=== PATIENT | male | born 1960 | race Caucasian/White ===

== ENCOUNTER → 2016-07-03 | Outpatient (CLI) | payer BC ==
[~2016-07-03] MED LIST: ASACOL400 MG PO; Asacol PO; FLAGYL PO; PREDNISONE PO; PREDNISONE10 MG PO
[2016-07-03 12:24] LABS: BASOPHIL# 0.1 X10e3 (0-0.3); BASOPHIL% 0.9 % (0-2.5); EOSINOPHIL# 0.1 X10e3 (0-0.7); EOSINOPHIL% 1.4 % (0.0-7.0); HEMATOCRIT 45.7 % (38.0-50.0); LYMPHOCYTE# 2.3 X10e3 (1.0-3.5); LYMPHOCYTE% 22.1 % (17.0-45.0); MEAN CELL VOLUME 90.8 FL (83-96); MEAN CORPUSCULAR HEMOGLOBIN 31.7 PG (28-34); MEAN CORPUSCULAR HGB CONC 34.9 g/dL (30-36); MEAN PLATELET VOLUME 7.4 FL (6.5-11.5); MONOCYTE% 9.3 % (3.0-12.0); NEUTROPHIL# 6.9 X10e3 (1.5-7.1); NEUTROPHIL% 66.3 % (40-75); PLATELET COUNT 395 X10e3 (140-420); RED BLOOD COUNT 5.03 X10e (3.90-5.60); RED CELL DISTRIBUTION WIDTH 14.4 % (11.0-15.5); WHITE BLOOD COUNT 10.3 X10e3 (4.0-10.5)
[2016-07-03 12:26] LABS: DIFF IND NO
[2016-07-03 12:40] LABS: ALBUMIN SERUM 3.9 g/dL (3.5-5.0); BILIRUBIN,TOTAL 1.3 mg/dL (0.2-2.0); BUN/CREATININE RATIO 14.16; CALCIUM SERUM 9.1 mg/dL (8.4-10.2); CREATININE SERUM 1.2 mg/dL (0.6-1.4); GLOM FILT RATE Estimated 68.2 mL/min (>60); POTASSIUM 3.2 mmol/L (3.5-5.1); PROTEIN TOTAL SERUM 7.2 g/dL (6.0-8.3)
[2016-07-03 12:42] LABS: MICRO INDICATED? NO; URINE APPEARANCE CLEAR; URINE BILIRUBIN NEG (NEG); URINE BLOOD NEG (NEG); URINE COLOR YELLOW; URINE GLUCOSE NEG (NORM); URINE KETONE NEG (NEG); URINE LEUKOCYTE ESTERASE NEG (NEG); URINE NITRATE NEG (NEG); URINE PROTEIN TRACE (NEG); URINE SOURCE CLEAN CATCH; URINE SPECIFIC GRAVITY 1.015 (1.003-1.035); URINE UROBILINOGEN 0.2 MG/DL (NORM)
[2016-07-06 07:18] LABS: HA AB IGM (HEPPAN) Nonreactive (()); HB CORE AB IGM (HEPPAN) Nonreactive (Nonreactive); HB S AG (HEPPAN) Nonreactive (Nonreactive); HEP C AB (HEPPAN) Nonreactive (Nonreactive); HEP C AB SIGNAL TO CUTOFF 0.02 ratio (<1.00)
== END | disposition home or self-care (01) ==
LOC: SLAB 11:47
PROVIDERS: Family Medicine
DX: D72.829 Elevated white blood cell count, unspecified (principal); R79.89 Other specified abnormal findings of blood chemistry; E87.6 Hypokalemia; R31.29 Other microscopic hematuria
CPT/HCPCS: 80053; 80074; 81003; 85025

== ENCOUNTER → 2016-07-05 | Outpatient (CLI) | payer BC ==
--- NOTE | ~2016-07-05 | US5 ---
[facility] A Service of [facility] RADIOLOGY TEXT RESULTS PATIENT: KRISTIAN CHO LOCATION: SG : 62 UNIT #: [id number] AGE: [address]: Ming Juan MD SEX: M ORDER DR: [id number] [address] [address] [id number] MR#: [id number] Acc #: [id number] NAME: KRISTIAN CHO : 1960 SEX: M STUDY DATE/TIME: 07/05/2016 8:21 UNIT: [facility] ROOM: STUDY DESCRIPTION: US Abdominal Complete Attending Physician: Ming Juan Jr., M.D. Referring Physician: Ming Juan Jr., M.D. Ordering Physician: Ming Juan Jr., M.D. Primary Care Physician: Ming Juan Jr., M.D. MEDICAL IMAGING REPORT This report is preliminary unless electronic signature is present. EXAM Abdominal ultrasound complete 07/05/2016 HISTORY Abnormally elevated liver enzymes on 06/29/2016. Left side abdominal pain for 1 month with weight loss for 3 months. FINDINGS The liver demonstrates an increase in echotexture with attenuation of the ultrasound beam characteristic of fatty infiltration. No cystic or solid mass lesions were seen in the liver. The intra and extrahepatic bile ducts are not dilated. The gallbladder is normal with no evidence of cholelithiasis, wall thickening or pericholecystic fluid. The common duct measures 2 mm. The pancreas and spleen are normal. The spleen measures 10.8 cm in greatest diameter. The visualized portions of the abdominal aorta and inferior vena cava are within normal limits. The kidneys are normal bilaterally. IMPRESSION Fatty infiltration of the liver. Otherwise negative abdominal ultrasound. Dictated by... Monty Novak M.D. THIS IS AN ELECTRONICALLY VERIFIED REPORT Monty Novak M.D. at 07/07/2016 8:16 AM KRT/to TD: 07/05/2016 15:31 JOB #: [id number] MEDICAL IMAGING REPORT [facility] A Service of [facility] RADIOLOGY TEXT RESULTS PATIENT: KRISTIAN CHO LOCATION: [facility] #: [id number] : [birth year] UNIT #: [id number] AGE: [address]: Ming Juan MD SEX: M ORDER DR: Page 1 of 1
== END | disposition home or self-care (01) ==
LOC: SGUS 07:53
DX: R79.89 Other specified abnormal findings of blood chemistry (principal); K76.0 Fatty (change of) liver, not elsewhere classified
CPT/HCPCS: 76700

== ENCOUNTER 2016-07-13 18:05 | Inpatient (IN) | payer BC ==
--- NOTE | ~2016-07-13 | CO ---
Unit #: [id number] #: [id number] Patient: KRISTIAN CHO [id number] [place] [address] [id number] MR#: [id number] NAME: KRISTIAN CHO ROOM: P259 Age: 55 Sex: M Admission Date: 07/13/2016 : 1960 Attending Physician: Bryant Vu M.D. Primary Care Physician: Ming Juan Jr., M.D. Consultation Date: 07/16/2016 CONSULTATION REPORT JAGUAR Reaves is a 55-year-old gentleman with severe psychosis. His p.o. intake of food and water has been inadequate over the past 48 hours. We will check a BMP. The patient is to be out of his room for all meals and snacks. Nursing staff is to monitor I's and O's. We will await results of BMP. Dictated by... Hazel Alford P.A.-C. for Isaac Lopez/nikita TD: 07/17/2016 12:17 JOB #: [id number] CONSULTATION REPORT Page 1 of 1 X Hazel Alford CONSULTATION REPORT
--- NOTE | ~2016-07-13 | A ---
[facility] Nutrition Therapy DATE: 07/23/16 Patient: KRISTIAN Gonsalez LAVERNEJosh Physician: LELIA Address: [address] [place] [address] Room/Bed: P259-1 [facility], Zip: [place] [id number] Admit Date: 07/13/16 Date of : [birth year] Height: 5 6 Weight: [phone] NUTRITIONAL ASSESSMENT: REASON: LENGTH OF STAY PATIENT ADMITTED FOR DEPRESSION, ANXIETY, AND PARANOIA PMH: ULCERATIVE COLITIS, RA, HTN Anthropometrics: HT: 5'6", WT: 157#, BMI: 25.3 Labs: 07/17/16- GLU: 125, ALB: 3.4 Meds: COGENTIN, HELOPERIDOL, CYMBALTA, ATIVAN, ZYPREXA, DESYREL, KLOR-CON Assessment: PATIENT IS A 55 Y/O MALE ADMITTED FOR DEPRESSION, ANXIETY, AND PARANOIA. PATIENT IS CURRENTLY EMPLOYED BUT UNABLE TO WORK D/T ANXIETY, LIVES WITH HIS AND SON, AND DENIES ANY SUBSTANCE ABUSE. UPON ADMIT PATIENT STATED A FAIR APPETITE WITH A 30# WIEGHT LOSS SINCE MARCH, HE HAD NOT BEEN SLEEPING, AND NURSING REPORTED POOR PO INTAKES AND AT TIMES REFUSING FOOD. PATIENT CONTINUES TO EXHIBIT PARANOIA, HOWEVER HE HAS HAD A DECREASE IN ANXIETY AND DEPRESSION. HE HAS HAD FAIR PO INTAKES SINCE COMING OUT OF HIS ROOM. AT TIMES PATIENT STILL REFUSES TO COME OUT OF HIS ROOM BUT IT HAS BEEN IMPROVING. HE CONTINUES NEEDING A LOT OF PROMPTING TO TAKE MEDICATIONS, EAT, AND TAKE CARE OF HIS ADLS. THERE ARE NO SKIN OR GI ISSUE NOTED ATT. PATIENT IS ON A REGULAR DIET. CURRENT PSYCH MEDS MAY CAUSE WEIGHT AND APPETITE FLUCTUATIONS. Dx: INADEQUATE NUTRIENT INTAKE R/T CURRENT CONDITION, PARANOIA AEB DECREASED APPETITE AND PO INTAKES, SELF-REPORTED WEIGHT LOSS (THIS SEEMS TO BE IMPROVING DAILY) Intervention: REGULAR DIET, MEDS PER MD, PSYCH Monitoring, Evaluation and Goals: 1. ADEQUATE PO INTAKES >50% OF MEALS 2. PREVENT, CORRECT MICRO/MACRO NUTRIENT DEFICIENCIES MONITOR: WEIGHTS, LABS, PO/FLUID INTAKES Recommendations: 1. CONTINUE REGULAR DIET TOLERATED. OFFER SNACKS THROUGHTOUT THE DAY 2. ENCOURAGE ADEQUATE PO AND FLUID INTAKES 3. OBTAIN NEW WEIGHT TO ENSURE PATIENT RECEIVING ADEQUATE ORAL INTAKES 4. CONSULT RD WITH ANY FURTHER NUTRITIONAL QUESTIONS OR CONCERNS [facility] Nutrition Therapy DATE: 07/23/16 Patient: KRISTIAN CHO Physician: LELIA Address: [address] [place] [address] Room/Bed: P259-1 [facility], Zip: [place] [address] Admit Date: 07/13/16 Date of : [birth year] Height: 5 6 Weight: [phone] TO F/U PER PROTOCOL AND PRN R/T PATIENT MILDLY COMPROMISED Respectfully, ABDELRAHMAN VINES RD, LD Food and Nutritional [facility] cc: client file
--- NOTE | ~2016-07-13 | PN ---
Unit #: [id number] #: [id number] Patient: KRISTIAN CHO [id number] [facility] [address] [place] [address] [id number] MR#: [id number] NAME: KRISTIAN CHO ROOM: P259 Age: 55 Sex: M Admission Date: 07/13/2016 : 1960 Attending Physician: Bryant Vu M.D. Admitting Physician: Bryant Vu M.D. Primary Care Physician: Ming Juan Jr., M.D. [facility] PROGRESS NOTES DATE 07/20/2016 DISCUSSION Mr. Reaves is a 55-year-old male, seen on 07/20/2016. The patient interviewed, chart reviewed, and obtained information from the nursing staff. The patient continues to be guarded, paranoid, flat affect, withdrawn, isolative, almost tearing, attending to internal stimuli, still needing a lot of prompts to take care of his activities of daily living, and eat and getting out of his room, seclusive, isolative. REVIEW OF SYSTEMS Complete review of systems unremarkable. MENTAL STATUS EXAMINATION General appearance: Patient dressed casually in hospital attire. Attention span and concentration, poor. Oriented to place and person. Mood and affect, labile. Speech, monotone. Thought process, concrete. The patient guarded, paranoid, passive SI, attending to internal stimuli. Recent and remote memory, poor. Insight and judgment, poor. DIAGNOSES 1. Major depressive disorder, recurrent. 2. Psychosis, NOS. ASSESSMENT/PLAN Recommending at this time to change Haldol to 5 mg twice daily, Cogentin 1 mg twice daily, continue to encourage the patient to eat, take his medications and if needed consider further adjustment of medication. Dictated by... Isaac Graham/pratik TD: 07/21/2016 10:37 JOB #: [id number] Unit #: [id number] #: [id number] Patient: KRISTIAN CHO PROGRESS NOTES Page 1 of 1 X Bryant Vu MD PROGRESS NOTE
--- NOTE | ~2016-07-13 | PN ---
Unit #: [id number] #: [id number] Patient: KRISTIAN CHO [id number] [facility] [address] [place] [address] [id number] I MR#: [id number] NAME: KRISTIAN CHO ROOM: P259 Age: 55 Sex: M Admission Date: 07/13/2016 : 1960 Attending Physician: Bryant Vu M.D. Admitting Physician: Bryant Vu M.D. Primary Care Physician: Ming Juan Jr., M.D. [facility] PROGRESS NOTES DATE OF SERVICE 07/22/2016 DISCUSSION Mr. Reaves is a 55-year-old male seen on 07/22/2016. Patient compliant with medication. Needing prompts to take care of ADLs, attend group, take medication, but still redirectable, no aggressive behavior. Patient reports sleeping good, decreasing anxiety/depression, but still guarded, paranoid. COMPLETE REVIEW OF SYSTEMS Unremarkable. MENTAL STATUS EXAMINATION GENERAL APPEARANCE: Patient dressed casually. ATTENTION SPAN AND CONCENTRATION: Fair. Oriented in time, place and person. MOOD AND AFFECT: Sad, dysphoric. SPEECH: Monotone. THOUGHT PROCESS: [place]. Patient having passive SI, guarded, paranoid, delusional. RECENT AND REMOTE MEMORY: Poor. INSIGHT AND JUDGMENT: Poor. DIAGNOSES Major depressive disorder, recurrent, with psychotic feature Psychosis, NOS ASSESSMENT/PLAN Advised to continue with current medication and therapeutic protocol. If needed, consider further adjustment on medication. Dictated by... Isaac Graham/bharati TD: 07/22/2016 23:26 JOB #: [id number] Unit #: [id number] #: [id number] Patient: KRISTIAN CHO PROGRESS NOTES Page 1 of 1 X Bryant Vu MD X PROGRESS NOTE
--- NOTE | ~2016-07-13 | PN ---
Unit #: [id number] #: [id number] Patient: KRISTIAN CHO [id number] [facility] [address] [place] [address] [id number] I MR#: [id number] NAME: KRISTIAN CHO ROOM: P259 Age: 55 Sex: M Admission Date: 07/13/2016 : 1960 Attending Physician: Bryant Vu M.D. Admitting Physician: Bryant Vu M.D. Primary Care Physician: Ming Juan Jr., M.D. [facility] PROGRESS NOTES DATE OF SERVICE: 07/19/2016 DISCUSSION Mr. Reaves is a 55-year-old male, seen on 07/19/2016. The patient interviewed, chart reviewed, and obtained information from nursing staff. The patient continues to be isolative in his room. Hygiene and grooming, poor. Withdrawn, isolative, flat affect, sad, dysphoric mood. Vital signs; temperature 97.4, pulse 121, and blood pressure 113/73. The patient needed lot of prompts to take his medication and eat. The patient is still refusing to come out of his room, withdrawn, flat, guarded, paranoid, isolative. The patient was having inappropriate urination. Started MIW process. Complete review of systems unremarkable. MENTAL STATUS EXAMINATION General appearance, the patient dressed casually. Attention span and concentration, fair. Oriented in place and person. Mood and affect, labile. Speech, slow. Thought process; circumstantial, guarded. The patient was having passive SI, guarded, paranoid, delusional, poor insight, poor judgment. Recent and remote memory, poor. Insight and judgment, poor. DIAGNOSES 1. Major depressive disorder, recurrent. 2. Psychosis, not otherwise specified. ASSESSMENT AND PLAN Advised to continue with current medication and therapeutic protocol. If needed, consider further adjustment of medication such as increasing the dosage of haloperidol to 5 mg b.i.d. as the patient is still having significant psychotic symptom. The patient is on 2 antipsychotics at this time, haloperidol and Zyprexa. Dictated by... Bryant Vu M.D. COLTON/nikita TD: 07/19/2016 22:30 JOB #: [id number] Unit #: [id number] #: [id number] Patient: KRISTIAN CHO PROGRESS NOTES Page 1 of 1 X Bryant Vu MD PROGRESS NOTE
--- NOTE | ~2016-07-13 | PN ---
Unit #: [id number] #: [id number] Patient: JEAN PAUL CHO [id number] [facility] [address] [place] [address] [id number] I MR#: [id number] NAME: JEAN PAUL CHO ROOM: P259 Age: 55 Sex: M Admission Date: 07/13/2016 : 1960 Attending Physician: Bryant Vu M.D. Admitting Physician: Bryant Vu M.D. Primary Care Physician: Ming Juan Jr., M.D. [facility] PROGRESS NOTES DATE 07/25/2016 DISCUSSION Jean Paul Cho is a 55-year-old male, seen on 07/25/2016. The patient was compliant and cooperative, seen on 07/25/16. The patient reported medication helping him, still having problems with the anxiety, depression, paranoia, able to go to some of the groups. Vital signs, stable, 97.8, 100, 16, and 112/84. The patient still having residual symptoms of paranoia, depression, passive SI, eating better, tolerating medication fairly well. REVIEW OF SYSTEMS Complete review of systems unremarkable. MENTAL STATUS EXAMINATION General appearance: Patient dressed casually. Attention span and concentration, fair. Oriented to place and person. Mood and affect, sad and dysphoric. Speech, monotone. Thought process, concrete. The patient denied any homicidal ideation but still having passive SI, guarded, paranoid. Recent and remote memory, poor. Insight and judgment, poor. DIAGNOSIS Major depressive disorder, recurrent. ASSESSMENT/PLAN Advised to continue with the current medication and therapeutic protocol and if needed consider adjustment of medication. Dictated by... Isaac Graham/pratik TD: 07/26/2016 09:04 JOB #: [id number] Unit #: [id number] #: [id number] Patient: JEAN PAUL CHO PROGRESS NOTES Page 1 of 1 X Bryant Vu MD X PROGRESS NOTE
--- NOTE | ~2016-07-13 | PN ---
Unit #: [id number] #: [id number] Patient: KRISTIAN CHO [id number] [facility] [address] [place] [address] [id number] I MR#: [id number] NAME: KRISTIAN CHO ROOM: P259 Age: 55 Sex: M Admission Date: 07/13/2016 : 1960 Attending Physician: Bryant Vu M.D. Admitting Physician: Bryant Vu M.D. Primary Care Physician: Ming Juan Jr., M.D. [facility] PROGRESS NOTES DATE OF SERVICE: 07/16/2016 DISCUSSION Mr. Reaves is a 55-year-old male, seen on 07/16/2016. The patient continues to be very guarded and paranoid, refusing to eat. The patient reported severe anxiety and paranoia. The patient was refusing to take medication, isolative, guarded, flat affect. I talked to the patient's in detail. Plan is to go for MIW at this time and also monitor the patient's intake and output. Also, ordered medical consultation. The patient was not cooperative, very guarded, paranoid. Subsequently, the patient was given Haldol 5, Cogentin 1, and Ativan 1 mg. Complete review of systems unremarkable. MENTAL STATUS EXAMINATION General appearance, the patient dressed casually. Attention span and concentration, fair. Oriented in place and person. Mood and affect; sad, dysphoric, flat. Speech, slow in volume and rate. Thought process, circumstantial. The patient was having suicidal ideation. Denied any homicidal ideation. Guarded and paranoid. Recent and remote memory, poor. Insight and judgment, poor. DIAGNOSIS Major depressive disorder, recurrent, severe with psychotic feature. ASSESSMENT AND PLAN Advised to continue with current medication and therapeutic protocol. If needed, consider further adjustment of medication, and we will pursue MIW at this time. Dictated by... Isaac Graahm/junitol TD: 07/16/2016 16:36 JOB #: [id number] Unit #: [id number] #: [id number] Patient: KRISTIAN CHO PROGRESS NOTES Page 1 of 1 X Bryant Vu MD PROGRESS NOTE
--- NOTE | ~2016-07-13 | PN ---
Unit #: [id number] #: [id number] Patient: KRISTIAN CHO [id number] [facility] [address] [place] [address] [id number] MR#: [id number] NAME: KRISTIAN CHO. ROOM: P259 Age: 55 Sex: M Admission Date: 07/13/2016 : 1960 Attending Physician: Bryant Vu M.D. Admitting Physician: Bryant Vu M.D. Primary Care Physician: Ming Juan Jr., M.D. [facility] PROGRESS NOTES DATE OF SERVICE 07/26/2016 DISCUSSION Mr. Reaves is a 55-year-old male seen on 07/26/2016. Patient interviewed, chart reviewed, I obtained information from nursing staff. Patient is tolerating medication fairly well, able to attend group. Decrease in anxiety, paranoia, depression. Patient was up early this morning but able to go back to sleep. No side effect from medication but still having above-mentioned symptoms. COMPLETE REVIEW OF SYSTEMS Unremarkable. MENTAL STATUS EXAMINATION GENERAL APPEARANCE: Patient dressed casually. ATTENTION SPAN AND CONCENTRATION: Fair. Oriented in time, place and person. MOOD AND AFFECT: Sad, dysphoric, flat. SPEECH: Monotone. THOUGHT PROCESS: [place]. Patient having passive SI, guarded, withdrawn, paranoid. RECENT AND REMOTE MEMORY: Poor. INSIGHT AND JUDGMENT: Poor. DIAGNOSIS Major depressive disorder with psychotic features ASSESSMENT/PLAN Advised to continue with current medication and therapeutic protocol. Will plan to have a family session this week and discuss about discharge plan. Continue with the inpatient program at this time. Dictated by... Bryant Vu M.D. COLTON/bharati TD: 07/27/2016 00:01 Unit #: [id number] #: [id number] Patient: KRISTIAN CHO JOB #: [id number] [facility] PROGRESS NOTES Page 1 of 1 X Bryant Vu MD PROGRESS NOTE
--- NOTE | ~2016-07-13 | PN ---
Unit #: [id number] #: [id number] Patient: KRISTIAN CHO [id number] [facility] [address] [place] [address] [id number] MR#: [id number] NAME: KRISTIAN CHO ROOM: P259 Age: 55 Sex: M Admission Date: 07/13/2016 : 1960 Attending Physician: Bryant Vu M.D. Admitting Physician: Bryant Vu M.D. Primary Care Physician: Ming Juan Jr., M.D. [facility] PROGRESS NOTES DATE OF SERVICE 07/15/2016 DISCUSSION Mr. Reaves is a 55-year-old male seen on 07/15/2016. The patient interviewed, chart reviewed. Obtained information from nursing staff. The patient was withdrawn, isolative, guarded, seclusive, staying in his room. The patient compliant with medication but still very sad, depressed, anxious, paranoid. The patient refused to eat his breakfast this morning. Decreased appetite, feeling of hopelessness, worthlessness. Complete Review of Systems: Unremarkable. MENTAL STATUS EXAMINATION General Appearance: The patient dressed casually. Attention span, concentration: Fair. Oriented in place and person. Mood and affect: Sad, depressed. Speech: Monotone. Thought process: [place]. The patient reported having passive SI, withdrawn, isolative, delusional, paranoid. Recent and remote memory: Poor. Insight and judgment: Poor. DIAGNOSES 1. Major depressive disorder with psychotic features. 2. Rule out bipolar mood disorder. ASSESSMENT/PLAN Advised to continue with current medication with a plan to change Vistaril to 50 mg 3 times a day and added Ativan 0.5 mg 3 times a day and one dose now. We will continue to encourage the patient to attend group and eat. Continue with the inpatient programming. Dictated by... Bryant Vu M.D. COLTON/agnieszka TD: 07/16/2016 13:04 JOB #: [id number] Unit #: [id number] #: [id number] Patient: KRISTIAN CHO PROGRESS NOTES Page 1 of 1 X Bryant Vu MD NOTE
--- NOTE | ~2016-07-13 | PN ---
Unit #: [id number] #: [id number] Patient: JEAN PAUL CHO [id number] [facility] [address] [place] [address] [id number] MR#: [id number] NAME: JEAN PAUL CHO ROOM: P259 Age: 55 Sex: M Admission Date: 07/13/2016 : 1960 Attending Physician: Bryant Vu M.D. Admitting Physician: Bryant Vu M.D. Primary Care Physician: Ming uJan Jr., M.D. [facility] PROGRESS NOTES DATE 07/17/2016 DISCUSSION Jean Paul Cho is a 55-year-old male seen on 07/17/2016. Patient interviewed, chart reviewed, obtained information from the nursing staff. The patient continues to be guarded, paranoid, flat affect, sad, dysphoric. Patient reviewed p.r.n. medication Haldol, Cogentin, Ativan. Able to eat better last night and decrease in paranoia. Patient was compliant with medication last night. Patient continues to be isolative, guarded, flat affect. Patient still refusing to leave room. Paranoid. Complete review of systems unremarkable. MENTAL STATUS EXAMINATION General appearance: Patient is dressed casually. Attention span and concentration poor. Oriented in place and person. Mood and affect sad and dysphoric. Flat, withdrawn, isolative. Speech monotone. Thought process concrete. Patient guarded, paranoid, delusional. Depressed. Suicidal ideation. Recent and remote memory poor. Insight and judgement poor. DIAGNOSIS Major depressive disorder, recurrent. ASSESSMENT AND PLAN Advise to continue with current medication, and continue to encourage patient to take medication and eat. If needed, consider further adjustment of medication. Dictated by... Isaac Graham/perla TD: 07/18/2016 10:54 JOB #: [id number] Unit #: [id number] #: [id number] Patient: JEAN PAUL CHO PROGRESS NOTES Page 1 of 1 X Bryant Vu MD PROGRESS NOTE
--- NOTE | ~2016-07-13 | PA ---
Unit #: [id number] #: [id number] Patient: JEAN PAUL CHO [id number] [facility] [address] [place] [address] [id number] I MR#: [id number] NAME: JEAN PAUL CHO ROOM: P259 Age: 55 Sex: M Admission Date: 07/13/2016 : 1960 Date of Assessment: 07/14/2016 Attending Physician: Bryant Vu M.D. Admitting Physician: Bryant Vu M.D. Primary Care Physician: Ming Juan Jr., M.D. PSYCHIATRIC ASSESSMENT INFORMANTS The patient's reliability, fair; chart reliability, good. CHIEF COMPLAINT Depression. HISTORY OF PRESENT ILLNESS Mr. Jean Paul Cho is a 55-year-old white male, seen on 2-Cassi with symptoms of depression, anxiety, paranoia. Mr. Reaves was enrolled in [facility] and discharged as the patient was not doing well in the program. The patient has not shown much improvement and steadily going downhill, increase in anxiety, depression, and paranoia. The patient reported anxiety, severe, trouble sleeping and eating, withdrawn, isolative, delusional, people are following him, driving by his home at night. The patient also lost 30 pounds since March. The patient reported that it is getting harder for him to get out of the bed, failed lower level of care, severe anxiety, depression, passive SI. The patient was also followed in the outpatient clinic with Dr. Eng, but no improvement, therefore needed inpatient admission at this time for psychiatric stabilization. The patient denied any current suicidal or homicidal ideation or any plans, but feeling of hopelessness, passive SI. PAST PSYCHIATRIC HISTORY Remarkable for history of outpatient services through [facility] in [facility] level of care. No history of any suicide attempt. FAMILY HISTORY AND SOCIAL HISTORY The patient has good support from his and son. No history of any abuse. MEDICAL HISTORY Remarkable for history of hypertension. Musculoskeletal; muscle strength and tone, no atrophy or abnormal movement. Gait normal. MEDICATION HISTORY The patient is on amlodipine, hydrochlorothiazide, metoprolol, potassium, Humira, hydroxyzine, trazodone, Prozac, and Zyprexa. ALLERGIES No known drug allergies. SUBSTANCE ABUSE HISTORY Unit #: [id number] #: [id number] Patient: JEAN PAUL CHO None. REVIEW OF SYSTEMS HEENT: Eyes, clear. Ears, nose, mouth, and throat; clear. CARDIOVASCULAR: Unremarkable. RESPIRATORY: Unremarkable. GI: Unremarkable. : Unremarkable. SKIN: Unremarkable. LYMPH NODE: Unremarkable. NEUROLOGIC: Unremarkable. ENDOCRINE: Unremarkable. HEMATOLOGIC: Unremarkable. ALLERGIC/IMMUNOLOGIC: Unremarkable. MUSCULOSKELETAL: Muscle strength and tone, no atrophy or abnormal movement. Gait normal. MENTAL STATUS EXAMINATION CONSTITUTIONAL: Measurement of vital signs; temperature is 98.3, pulse 73, respirations 17, oxygen saturation 98%, blood pressure 156/90, height 5 feet 6 inches, weight 157 pounds. GENERAL APPEARANCE: The patient is dressed casually. No facial deformity noted. MUSCULOSKELETAL: Please see above. PSYCHIATRIC EXAMINATION Description of speech; slow. Description of thought process, circumstantial. Description of association, intact. Description of abnormal psychotic thinking; the patient was guarded, paranoid, mood lability, depression, feeling of hopelessness and worthlessness. No suicidal or homicidal ideation, but passive SI. Description of the patient's judgment, concerning. Everyday activity, poor. Social situation, poor and concerning. Psychiatric condition, poor. Complete mental status examination; oriented in time, place, and person. Recent and remote memory, fair. Attention span and concentration, fair. Language, able to name object and repeat phrases. Fund of knowledge, aware of current event and passive vocabulary intact. Mood and affect, sad and dysphoric. Insight and judgment, fair to poor. ASSETS AND LIABILITIES Assets; the patient is articulate and able to take care of his ADL. Liability; history of severe depression with psychosis. ADMITTING DIAGNOSES Psychiatric: 1. Major depressive disorder, recurrent, severe, F33.2. 2. Anxiety disorder, not otherwise specified, F41.9. 3. Psychosis, not otherwise specified, F29.0. Secondary diagnosis: Deferred. Medical diagnosis: Hypertension. Stressors: Psychosocial stressor. PSYCHIATRIC PLAN, TREATMENT GOAL, AND DISCHARGE PLAN 1. Advised to admit the patient on the inpatient unit. Provide safe, supportive, and structured environment. Unit #: [id number] #: [id number] Patient: JEAN PAUL CHO 2. Ordered labs; CBC, CMP, UA, UDS, T4, TSH. 3. Advised to resume home medication with a plan to continue with the following medication only; Zyprexa 10 mg at bedtime, Desyrel 100 mg at bedtime, Vistaril 25 mg times a day, Klor-Con. Prozac was discontinued with a plan to consider alternative medication. Continue with the inpatient programing. If needed, consider further adjustment of medication. Dictated by... Isaac Graham/nikita TD: 07/15/2016 05:09 JOB #: [id number] PSYCHIATRIC ASSESSMENT Page 1 of 1 X Bryant Vu MD X PSYCHIATRIC ASSESSMENT
--- NOTE | ~2016-07-13 | PN ---
Unit #: [id number] #: [id number] Patient: KRISTIAN CHO [id number] [facility] [address] [place] [address] [id number] I MR#: [id number] NAME: KRISTIAN CHO. ROOM: P259 Age: 55 Sex: M Admission Date: 07/13/2016 : 1960 Attending Physician: Bryant Vu M.D. Admitting Physician: Bryant Vu M.D. Primary Care Physician: Ming Juan Jr., M.D. [facility] PROGRESS NOTES DATE OF SERVICE 07/23/2016 DISCUSSION Mr. Reaves is a 55-year-old male seen on 07/23/2016. The patient interviewed, chart reviewed. Obtained information from nursing staff. The patient slowly making progress. Still isolative, guarded, flat affect. Paranoia, anxiety, delusional, but able to contract for safety. The patient was able to attend some group. Still isolative. Taking medication, but still needing prompts. No side effects from medication. Complete Review of Systems: Unremarkable. MENTAL STATUS EXAMINATION General Appearance: The patient dressed casually. Attention span, concentration: Poor. Oriented in place and person. Mood and affect: Sad, dysphoric, flat. Speech: Monotone. Thought process: [place]. The patient still having passive SI. Denied any plans. Guarded, paranoid. Recent and remote memory: Poor. Insight and judgment: Poor. DIAGNOSES 1. Major depressive disorder, recurrent, severe, with psychotic feature. 2. Psychosis not otherwise specified. ASSESSMENT/PLAN Advised to continue with current medication. If needed, consider further adjustment of medication. The patient is currently on combination of Cogentin, haloperidol, Cymbalta, Ativan, and Zyprexa. Desyrel for sleep. Dictated by... Bryant Vu M.D. SZC/bzg TD: 07/24/2016 07:51 JOB #: [id number] Unit #: [id number] #: [id number] Patient: KRISTIAN CHO PROGRESS NOTES Page 1 of 1 X Bryant Vu MD PROGRESS NOTE
--- NOTE | ~2016-07-13 | PN ---
Unit #: [id number] #: [id number] Patient: JEAN PAUL CHO [id number] [facility] [address] [place] [address] [id number] I MR#: [id number] NAME: JEAN PAUL CHO. ROOM: P259 Age: 55 Sex: M Admission Date: 07/13/2016 : 1960 Attending Physician: Bryant Vu M.D. Admitting Physician: Bryant Vu M.D. Primary Care Physician: Ming Juan Jr., M.D. [facility] PROGRESS NOTES DATE OF SERVICE 07/14/2016 DISCUSSION Mr. Jean Paul Cho is a 55-year-old male seen on 07/14/2016. Patient interviewed, chart reviewed, obtained information from nursing staff. Patient continues to be guarded, paranoid, withdrawn, isolative, sad, dysphoric, anxious, delusional, passive SI. COMPLETE REVIEW OF SYSTEMS Unremarkable. MENTAL STATUS EXAMINATION GENERAL APPEARANCE: Patient dressed casually. ATTENTION SPAN AND CONCENTRATION: Fair. Oriented in place and person. MOOD AND AFFECT: Labile. SPEECH: Monotone. THOUGHT PROCESS: [place]. Patient having passive SI, withdrawn, isolative, guarded. RECENT AND REMOTE MEMORY: Poor. INSIGHT AND JUDGMENT: Poor. DIAGNOSIS Major depressive disorder, recurrent, with psychosis, NOS Anxiety disorder, NOS ASSESSMENT/PLAN Continue with the current medication (combination of Zyprexa, Desyrel, Vistaril, Cymbalta), discontinue Prozac. If needed, consider further adjustment in medication. Dictated by... Isaac Graham/bharati TD: 07/14/2016 22:37 JOB #: [id number] Unit #: [id number] #: [id number] Patient: JEAN PAUL [place] PROGRESS NOTES Page 1 of 1 X Bryant Vu MD PROGRESS NOTE
--- NOTE | ~2016-07-13 | PN ---
Unit #: [id number] #: [id number] Patient: KRISTIAN CHO [id number] [facility] [address] [place] [address] [id number] MR#: [id number] NAME: KRISTIAN CHO ROOM: P259 Age: 55 Sex: M Admission Date: 07/13/2016 : 1960 Attending Physician: Bryant Vu M.D. Admitting Physician: Bryant Vu M.D. Primary Care Physician: Ming Juan Jr., M.D. [facility] PROGRESS NOTES DATE 07/27/2016 DISCUSSION Mr. Reaves is a 55-year-old male seen on 07/27/2016. The patient interviewed, chart reviewed. Obtained information from nursing staff. The patient was compliant and cooperative. Mood sad, dysphoric isolative guarded but overall making progress tolerating medication fairly well. The patient was able to go to other groups. Compliant with medication showing improvement in his mood and behavior. Complete review of systems unremarkable. MENTAL STATUS EXAMINATION General appearance, the patient dressed casually. Attention span and concentration fair. Oriented to time, place and person. Mood and affect sad, dysphoric, flat. Speech monotone. Thought process concrete. The patient denied any suicidal or homicidal ideation denied any psychotic symptoms. Denied any auditory or visual hallucination but guarded, paranoid. Recent and remote memory poor. Insight and judgement poor. DIAGNOSES Major depressive disorder recurrent severe with psychotic features. ASSESSMENT/PLAN Advise to continue with current medication with a plan to consider discharge this week. The patient overall making progress but still having residual symptoms of psychosis and depression. Dictated by... Isaac Graham/jess TD: 07/28/2016 03:17 JOB #: [id number] Unit #: [id number] #: [id number] Patient: KRISTIAN CHO PROGRESS NOTES Page 1 of 1 X Bryant Vu MD PROGRESS NOTE
--- NOTE | ~2016-07-13 | HP ---
Unit #: [id number] #: [id number] Patient: JEAN PAUL CHO [id number] [place] [address] [id number] MR#: [id number] NAME: JEAN PAUL CHO. ROOM: P259 Age: 55 Sex: M Admission Date: 07/13/2016 : 1960 Attending Physician: Bryant Vu M.D. Admitting Physician: Bryant Vu M.D. Primary Care Physician: Ming Juan Jr., M.D. HISTORY AND PHYSICAL HISTORY OF PRESENT ILLNESS Jean Paul is a 55 year old admitted to [address] [place] [address] with increased anxiety and depression. PAST MEDICAL HISTORY 1. Ulcerative colitis. 2. Rheumatoid arthritis. 3. High blood pressure. PAST SURGICAL HISTORY Nothing reported. ALLERGIES Levaquin. SOCIAL HISTORY He denies cigarettes, alcohol and illicit drug use. FAMILY HISTORY Medically noncontributory. REVIEW OF SYSTEMS CONSTITUTIONAL: No fever or chills. HEENT: Denies any sore throat, ear pain or runny nose. CARDIOVASCULAR: Denies chest pain, irregular heart rhythm or palpitations. CHEST: Denies shortness of breath or cough. No hemoptysis. GASTROINTESTINAL: Denies nausea, vomiting, diarrhea or chronic constipation. ENDOCRINE: Denies history of increased thirst or urination. No recent significant weight loss or gain. GENITOURINARY: Denies dysuria, frequency, or hematuria. SKIN: Denies any rashes. HEMATOLOGIC: Denies history of increased bleeding or bruising. MUSCULOSKELETAL: Denies any hot, swollen joints. No generalized muscle pain. NEUROLOGIC: Denies problems with vision or speech. No frequent, severe headaches. No numbness, tingling or weakness in any extremities. Denies loss of bladder or bowel control. CURRENT MEDICATIONS 1. Zyprexa 10 mg q.h.s. 2. Desyrel 100 mg q.h.s. 3. Vistaril 25 mg t.i.d. Unit #: [id number] #: [id number] Patient: JEAN PAUL CHO 4. KCL 10 mEq daily. 5. Prozac 20 mg daily. 6. Milk of Magnesia p.r.n. 7. Maalox p.r.n. 8. Tylenol p.r.n. PHYSICAL EXAMINATION GENERAL: Alert, well-nourished, in no apparent distress. VITAL SIGNS: Blood pressure 156/90, heart rate 80, respirations 16, temperature 98.6. WEIGHT: 157. HEIGHT: 5 feet 6 inches. SKIN: Warm and dry without rash or lesion. HEENT: Normocephalic. TMs not viewed. Oral and nasal passages clear. Conjunctivae clear. PERRLA. EOMs intact. NECK: Supple without lymphadenopathy or thyromegaly. HEART: Regular rate and rhythm without murmur. LUNGS: Clear. ABDOMEN: Soft, nontender. : Not done. EXTREMITIES: No evidence of cyanosis, clubbing or edema. Moves all without focal deficit. NEUROLOGICAL: Grossly within normal limits. Cranial Nerves: II: Visual zamorano are intact. III, IV AND : Extraocular movements are intact. Pupils are equal, round and reactive to light. V: Facial sensation is grossly normal. VII: Facial movements and expression are normal. VIII: Auditory acuity grossly intact. IX, X: Uvula is midline. Phonation is normal. XI: Patient shrugs shoulders and turns head normally. XII: Tongue protrudes in the midline. Sensory and Motor Function: Sensory and motor sensation is grossly normal. Motor: moves all extremities well. Coordination: Gait is normal. Deep Tendon Reflexes: Intact. IMPRESSION Psychiatric admission. RECOMMENDATIONS PSYCHIATRIC: Per psychiatrist. MEDICAL: See no contraindications to participate in facility's activities. MEDICAL PROGNOSIS Good. MEDICAL CONDITION Stable. Dictated by... Hazel Alford P.A.-C. for Isaac Lopez/cesar TD: 07/14/2016 18:28 JOB #: [id number] Unit #: [id number] #: [id number] Patient: JEAN PAUL CHO HISTORY AND PHYSICAL Page 1 of 1 X Hazel Alford HISTORY AND PHYSICAL
--- NOTE | ~2016-07-13 | PN ---
Unit #: [id number] #: [id number] Patient: JEAN PAUL CHO [id number] [facility] [address] [place] [address] [id number] I MR#: [id number] NAME: JEAN PAUL CHO ROOM: P259 Age: 55 Sex: M Admission Date: 07/13/2016 : 1960 Attending Physician: Bryant Vu M.D. Admitting Physician: Bryant Vu M.D. Primary Care Physician: Ming Juan Jr., M.D. [facility] PROGRESS NOTES DATE 07/18/2016 DISCUSSION Mr. Jean Paul Cho is a 55-year-old male, seen on 07/18/2016. The patient continues to be isolative, flat, withdrawn, refusing to eat this morning but compliant with medication last night and this morning. The patient was able to sleep somewhat better but still flat affect, guarded, paranoid, depressed. Vital signs stable, 98.4, 107, 16, and 170/88. The patient's ammonia level 27, CMP yesterday was remarkable for glucose of 125, potassium 4.4 REVIEW OF SYSTEMS Complete review of systems unremarkable. MENTAL STATUS EXAMINATION General appearance: Patient dressed casually. Attention span and concentration, poor. Oriented to place and person. Mood and affect, sad and depressed. Speech, slow, long pauses. Thought process, circumstantial. Thought content, passive SI. Guarded and paranoid, delusional. Recent and remote memory, poor. Insight and judgment, poor. DIAGNOSIS Major depressive disorder with psychotic features. ASSESSMENT/PLAN Advised to continue with the current medication combination of Ativan 0.5 mg three times a day, Vistaril 50 mg three times a day, Cymbalta 30 mg at bedtime, Zyprexa 10 mg at bedtime, Desyrel 100 mg at bedtime, if needed consider haloperidol. Dictated by... Bryant Vu M.D. COLTON/pratik Unit #: [id number] #: [id number] Patient: JEAN PAUL CHO TD: 07/19/2016 07:55 JOB #: [id number] [facility] PROGRESS NOTES Page 1 of 1 X Bryant Vu MD PROGRESS NOTE
--- NOTE | ~2016-07-13 | PN ---
Unit #: [id number] #: [id number] Patient: KRISTIAN CHO [id number] [facility] [address] [place] [address] [id number] I MR#: [id number] NAME: KRISTIAN CHO ROOM: P259 Age: 55 Sex: M Admission Date: 07/13/2016 : 1960 Attending Physician: Bryant Vu M.D. Admitting Physician: Bryant Vu M.D. Primary Care Physician: Ming Juan Jr., M.D. [facility] PROGRESS NOTES DATE OF SERVICE: 07/24/2016 . DISCUSSION Mr. Reaves is a 55-year-old male, seen on 07/24/2016. The patient continues to be isolative, flat affect, withdrawn, compliant with medication, needing prompts to attend group and take medication, still sad, depressed, flat affect, passive SI. Complete review of systems unremarkable. MENTAL STATUS EXAMINATION General appearance, the patient dressed casually. Attention span and concentration, fair. Oriented in place and person. Mood and affect, sad and depressed. Speech, monotone. Thought process, concrete. The patient denied any thoughts of harming self or others, but passive SI, guarded, withdrawn, flat. Recent and remote memory, poor. Insight and judgment, poor. DIAGNOSES Major depressive disorder with psychotic features. ASSESSMENT AND PLAN Advised to continue with current medication and therapeutic protocol. If needed, consider further adjustment of medication. Dictated by... Isaac Graham/nikita TD: 07/24/2016 21:21 JOB #: [id number] Unit #: [id number] #: [id number] Patient: KRISTIAN CHO PROGRESS NOTES Page 1 of 1 X Bryant Vu MD X PROGRESS NOTE
--- NOTE | ~2016-07-13 | DS ---
Unit #: [id number] #: [id number] Patient: KRISTIAN CHO [id number] [place] [address] [id number] I MR#: [id number] NAME: KRISTIAN CHO. ROOM: P259 Age: 55 Sex: M Admission Date: 07/13/2016 : 1960 Discharge Date: 07/28/2016 Attending Physician: Bryant Vu M.D. Primary Care Physician: Ming Juan Jr., M.D. DISCHARGE SUMMARY REASON FOR ADMISSION Depression, psychosis. DIAGNOSTIC STUDIES LABORATORY RESULTS: Unremarkable. HOSPITAL COURSE The patient was admitted to inpatient unit on 07/13/2016 and discharged on 07/28/2016. The patient was treated with group therapy, individual therapy, medication management, family therapy. The patient responded well with the above modalities of treatment and showed improvement, decrease in depressive symptom, psychotic symptom, compliant with medication. Subsequently, the patient was discharged with a plan to follow up in outpatient program. DISCHARGE MEDICATIONS Desyrel 100 mg at bedtime for sleep, Zyprexa 10 mg at bedtime for psychosis, Ativan 0.5 mg t.i.d. for anxiety, Cymbalta 5 mg b.i.d. for psychosis, Cogentin 1 mg b.i.d. for EPS symptom. The patient needed two antipsychotics as the patient did not do well with one. The patient was treated in the past with Zyprexa, Haldol, and Risperdal. Plan to taper off Haldol over the next 6 months. The patient is not a candidate for clozapine at this time. DISCHARGE DIAGNOSES Psychiatric: Major depressive disorder, recurrent, severe, with psychotic feature, F33.3; anxiety disorder, not otherwise specified, F41.9; psychosis, not otherwise specified, F29.0. Secondary diagnosis: Deferred. Medical diagnosis: Hypertension. Stressors: Psychosocial stressors. DISCHARGE INSTRUCTIONS The patient is to follow up in outpatient clinic as per psychiatric social worker. CONDITION ON DISCHARGE The patient was pleasant and cooperative. Denied any psychotic symptom or any suicidal ideation. PROGNOSIS Unit #: [id number] #: [id number] Patient: KRISTIAN CHO Guarded. DIET AND ACTIVITY As tolerated. Dictated by... Isaac Graham/nikita TD: 07/28/2016 15:55 JOB #: [id number] DISCHARGE SUMMARY Page 1 of 1 X Bryant Vu MD DISCHARGE SUMMARY
--- NOTE | ~2016-07-13 | PN ---
Unit #: [id number] #: [id number] Patient: KRISTIAN CHO [id number] [facility] [address] [place] [address] [id number] I MR#: [id number] NAME: KRISTIAN CHO ROOM: P259 Age: 55 Sex: M Admission Date: 07/13/2016 : 1960 Attending Physician: Bryant Vu M.D. Admitting Physician: Bryant Vu M.D. Primary Care Physician: Ming Juan Jr., M.D. [facility] PROGRESS NOTES DATE OF SERVICE 07/21/2016 DISCUSSION Mr. Reaves is a 55-year-old male seen on 07/21/2016. The patient interviewed, chart reviewed. Obtained information from nursing staff. The patient's mood sad, dysphoric, flat affect, guarded, isolative. The patient needing prompts to take care of his medication and take care of himself. Also, able to take his medication. The patient paranoid, guarded, fearful, anxious. The patient ate one-third of the breakfast and 236 mL of milk, half of lunch and 236 mL of milk. The patient scheduled for court today. Complete Review of Systems: Unremarkable. MENTAL STATUS EXAMINATION General Appearance: The patient's hygiene and grooming poor. Attention span, concentration: Poor. Oriented in place and person. Mood and affect: Sad, dysphoric. Speech: Monotone. Thought process: [place]. Association: The patient reported having passive SI. Denied any active suicidal ideation. Guarded, paranoid, withdrawn, isolative, delusional. Recent and remote memory: Poor. Insight and judgment: Poor. DIAGNOSES Major depressive disorder, recurrent, severe with psychotic features. ASSESSMENT/PLAN Advised to continue with current medication combination. If needed, consider further adjustment of medication. The patient is currently on Cogentin 1 mg twice daily, Haldol 5 mg twice daily which was increased yesterday. No side effects from medication. Also, taking Cymbalta, Ativan, and Zyprexa. Desyrel for sleep. We will continue to monitor. If needed, consider further adjustment of medication. Dictated by... Bryant Vu M.D. COLTON/agnieszka TD: 07/22/2016 09:35 Unit #: [id number] #: [id number] Patient: TAMMIEKRISTIAN JOB #: [id number] [facility] PROGRESS NOTES Page 1 of 1 X Bryant Vu MD PROGRESS NOTE
[2016-07-14 12:28] LABS: BASOPHIL# 0.1 X10e3 (0-0.3); BASOPHIL% 0.7 % (0-2.5); EOSINOPHIL# 0.1 X10e3 (0-0.7); EOSINOPHIL% 1.2 % (0.0-7.0); HEMATOCRIT 41.5 % (38.0-50.0); HEMOGLOBIN 14.3 gm/dL (13.0-16.0); LYMPHOCYTE# 1.5 X10e3 (1.0-3.5); LYMPHOCYTE% 19.2 % (17.0-45.0); MEAN CELL VOLUME 91.3 FL (83-96); MEAN CORPUSCULAR HEMOGLOBIN 31.4 PG (28-34); MEAN CORPUSCULAR HGB CONC 34.4 g/dL (30-36); MEAN PLATELET VOLUME 7.6 FL (6.5-11.5); MONOCYTE# 0.5 X10e3 (0-1.0); MONOCYTE% 6.8 % (3.0-12.0); NEUTROPHIL# 5.5 X10e3 (1.5-7.1); NEUTROPHIL% 72.1 % (40-75); PLATELET COUNT 298 X10e3 (140-420); RED BLOOD COUNT 4.55 X10e (3.90-5.60); RED CELL DISTRIBUTION WIDTH 14.6 % (11.0-15.5); WHITE BLOOD COUNT 7.6 X10e3 (4.0-10.5)
[2016-07-14 12:43] LABS: ALBUMIN SERUM 3.4 g/dL (3.5-5.0); BILIRUBIN,TOTAL 0.9 mg/dL (0.2-2.0); BUN/CREATININE RATIO 12.22; CALCIUM SERUM 9.2 mg/dL (8.4-10.2); CREATININE SERUM 0.9 mg/dL (0.6-1.4); GLOM FILT RATE Estimated 96.5 mL/min (>60); POTASSIUM 3.9 mmol/L (3.5-5.1); PROTEIN TOTAL SERUM 6.3 g/dL (6.0-8.3)
[2016-07-14 12:45] LABS: DIFF IND NO
[2016-07-17 15:06] LABS: CREATININE SERUM 0.9 mg/dL (0.6-1.4); GLOM FILT RATE Estimated 96.5 mL/min (>60); POTASSIUM 4.4 mmol/L (3.5-5.1)
[2016-07-20 10:02] LABS: URINE APPEARANCE TURBID; URINE BILIRUBIN NEG (NEG); URINE BLOOD NEG (NEG); URINE COLOR DK YELLOW; URINE GLUCOSE NEG (NEG); URINE KETONE TRACE (NEG); URINE LEUKOCYTE ESTERASE NEG (NEG); URINE NITRATE NEG (NEG); URINE PH 5.5 (5-8); URINE PROTEIN NEG (NEG); URINE SPECIFIC GRAVITY 1.025 (1.003-1.035)
[2016-07-20 10:31] LABS: AMPHETAMINE NEG (NEG); BARBITURATES NEG (NEG); BENZODIAZEPINES POS (NEG); COCAINE NEG (NEG); MARIJUANA NEG (NEG); OPIATES NEG (NEG); TRICYCLIC ANTIDEPRESSANTS POS (NEG); U METHADONE NEG (NEG)
== END 2016-07-28 14:00 | disposition home or self-care (01) | DRG 885 ==
LOC: P2L 18:05
PROVIDERS: Psychiatry & Neurology Psychiatry
DX: F33.3 Major depressive disorder, recurrent, severe with psychotic symptoms (principal); F41.9 Anxiety disorder, unspecified
CPT/HCPCS: 80048; 80053; 80307; 81003; 82140; 85025; J0515; J1630; J2060